=== PATIENT | male | born 1950 ===

== ENCOUNTER 2020-08-03 14:34 | Inpatient (IN) ==
[2020-08-03 16:12] LABS: Urine Appearance Clear; Urine Bilirubin Negative (Negative); Urine Blood Negative (Negative); Urine Color Yellow; Urine Glucose 3+(>=500 mg/dL) (Negative); Urine Ketones Negative (Negative); Urine Nitrite Negative (Negative); Urine Protein 2+(100 mg/dL) (Negative); Urine Specific Gravity 1.016 (1.010-1.030); Urine Urobilinogen Negative (Negative)
[2020-08-03 16:21] LABS: Urine Bacteria Absent (Absent); Urine Red Blood Cell Trace(0-2/hpf) (Absent); Urine Squamous Epithelial Cell Present (Absent); Urine White Blood Cell Trace(0-5/hpf) (Absent)
[2020-08-03 16:46] LABS: ABS Lymphocytes 1.6 10^3/ul (1.0-4.8); ABS Monocytes 0.7 10^3/ul (0-0.8); ABS Neutrophils 4.1 10^3/ul (1.5-7.7); Eosinophil % 0.5 %; Hematocrit 34 % (42-52); Hemoglobin 11.8 g/dL (14.0-18.0); Lymphocyte % 25.1 %; Mean Corpuscular HGB Conc 34 g/dL (31-36); Mean Corpuscular Hemoglobin 33 pg (27-31); Mean Corpuscular Volume 96 fL (80-94); Mean Platelet Volume 11.6 fL (7.4-10.4); Platelet Count 110 10^3/uL (150-450); Red Blood Count 3.56 10^6 /uL (4.18-5.48); Red Cell Distribution Width 14 % (10-15); White Blood Count 6.6 10^3/uL (3.5-10.8)
[2020-08-03 16:50] LABS: INR 1.11 (0.82-1.09)
[2020-08-03 17:11] LABS: TSH Ultra Thyroid Stim Horm 1.04 mcIU/mL (0.34-5.60)
[2020-08-03 17:59] LABS: Albumin 3.9 g/dL (3.2-5.2); Albumin/Globulin Ratio 1.3 (1-3); BUN/Creatinine Ratio 14.1 (8-20); Calcium 9.4 mg/dL (8.6-10.3); EGFR African American 42.5 (>60); EGFR Non-African American 35.1 (>60); Potassium 3.8 mmol/L (3.5-5.0); Total Bilirubin 0.5 mg/dL (0.2-1.0); Total Protein 6.9 g/dL (6.4-8.9)
[2020-08-03 18:15] LABS: Troponin I 0.02 ng/mL (<0.03)
[2020-08-03] MEDS ORDERED: Dextrose 50% Syringe 50 ml 25 GM/50 ML SYRINGE IV PUSH PRN (21:58)
[2020-08-03 22:34] LABS: HDL Cholesterol 25.6 mg/dL
[2020-08-03 22:50] LABS: Urine Benzodiazepine Screen None Detected (None Detect); Urine Cannabinoids Screen None Detected (None Detect); Urine Opiates Screen None Detected (None Detect)
[2020-08-04 06:10] LABS: BUN/Creatinine Ratio 14.3 (8-20); Calcium 9.2 mg/dL (8.6-10.3); EGFR African American 54.5 (>60); Potassium 3.2 mmol/L (3.5-5.0)
[2020-08-04] MEDS ORDERED: GLECAPREVIR/PIBRENTASVIR 1 EACH TABLET PO SCH (09:00)
[2020-08-04] MEDS: Aspirin EC 81 mg TAB.EC (enteric coated) PO SCH (09:27)
[2020-08-04] MEDS: Insulin GLARGINE 100 un/ml 10 ml VIAL SUBCUT SCH (09:27)
[2020-08-04] MEDS ORDERED: Potassium Chloride LIQUID 20 MEQ/15 ML LIQUID PO ONE (17:54)
[2020-08-04] MEDS: Analgesic BALM 114 GM TOPICAL SCH (23:32)
[2020-08-05 06:42] LABS: Hematocrit 34 % (42-52); Hemoglobin 11.7 g/dL (14.0-18.0); Mean Corpuscular HGB Conc 34 g/dL (31-36); Mean Corpuscular Hemoglobin 33 pg (27-31); Mean Corpuscular Volume 95 fL (80-94); Mean Platelet Volume 11.4 fL (7.4-10.4); Platelet Count 108 10^3/uL (150-450); Red Cell Distribution Width 14 % (10-15); White Blood Count 7.9 10^3/uL (3.5-10.8)
[2020-08-05 07:01] LABS: Anion Gap 5 mmol/L (2-11); BUN/Creatinine Ratio 16.9 (8-20); Blood Urea Nitrogen 23 mg/dL (6-24); CO2 Carbon Dioxide 28 mmol/L (22-32); Calcium 8.9 mg/dL (8.6-10.3); Chloride 107 mmol/L (101-111); EGFR African American 62.9 (>60); Glucose 98 mg/dL (70-100); Potassium 3.2 mmol/L (3.5-5.0); Sodium 140 mmol/L (135-145)
[2020-08-05 07:04] LABS: % Iron Saturation 22 % (15-55); Iron 60 ug/dL (50-212); Total Iron Binding Capacity 267 mcg/dL (250-450); Transferrin 191 mg/dL (203-362); Unsaturated Iron Binding < 252 ug/dL
[2020-08-05 07:24] LABS: Ferritin 70.6 ng/mL (24-336)
[2020-08-05 07:28] LABS: Vitamin B12 436 pg/mL (180-914)
[2020-08-05 09:30] LABS: Urine Creatinine Concentration 89.56 mg/dL
[2020-08-05] MEDS: Insulin GLARGINE 100 un/ml 10 ml VIAL SUBCUT SCH (09:53)
[2020-08-05] MEDS: Aspirin EC 81 mg TAB.EC (enteric coated) PO SCH (09:55)
[2020-08-05] MEDS: Analgesic BALM 114 GM TOPICAL SCH ×3 (09:56→20:07)
[2020-08-05] MEDS ORDERED: Iodixanol (CONTRAST) 320 MG/ML 100 ML SDV IV ONE (10:54)
[2020-08-05] MEDS ORDERED: Potassium Chlor 20 meq TAB.ER PO ONE ×2 (16:32→17:05)
[2020-08-06 06:54] LABS: ABS Eosinophils 0.1 10^3/ul (0-0.6); ABS Lymphocytes 2.7 10^3/ul (1.0-4.8); ABS Monocytes 0.8 10^3/ul (0-0.8); ABS Neutrophils 4.1 10^3/ul (1.5-7.7); Eosinophil % 1.1 %; Hematocrit 37 % (42-52); Hemoglobin 12.7 g/dL (14.0-18.0); Lymphocyte % 34.9 %; Mean Corpuscular HGB Conc 34 g/dL (31-36); Mean Corpuscular Hemoglobin 32 pg (27-31); Mean Corpuscular Volume 95 fL (80-94); Mean Platelet Volume 10.9 fL (7.4-10.4); Platelet Count 117 10^3/uL (150-450); Red Blood Count 3.92 10^6 /uL (4.18-5.48); Red Cell Distribution Width 14 % (10-15); White Blood Count 7.8 10^3/uL (3.5-10.8)
[2020-08-06 07:10] LABS: BUN/Creatinine Ratio 15.3 (8-20); Calcium 9.4 mg/dL (8.6-10.3); EGFR African American 65.6 (>60); EGFR Non-African American 54.3 (>60); Potassium 3.7 mmol/L (3.5-5.0)
[2020-08-06] MEDS: Insulin GLARGINE 100 un/ml 10 ml VIAL SUBCUT SCH (09:57)
[2020-08-06] MEDS: Analgesic BALM 114 GM TOPICAL SCH ×2 (09:59→14:14)
[2020-08-06] MEDS: Aspirin EC 81 mg TAB.EC (enteric coated) PO SCH (10:00)
[2020-08-06 16:56] VITALS: BP 173/79
== END 2020-08-06 20:30 | DRG 45 ==
LOC: ED 14:34 → MEDTELE 14:34
PROVIDERS: ADMIT Internal Medicine; ATTEND Internal Medicine

== ENCOUNTER 2021-01-03 12:46 | Inpatient (IN) ==
[2021-01-03] MEDS ORDERED: NS 0.9% 1000 ml BAG 1,000 ML IV ONE ×2 (14:18→17:29)
[2021-01-03 14:42] LABS: ABS Lymphocytes 1.4 10^3/ul (1.0-4.8); ABS Monocytes 0.7 10^3/ul (0-0.8); ABS Neutrophils 4.2 10^3/ul (1.5-7.7); Eosinophil % 0.7 %; Hematocrit 33 % (42-52); Hemoglobin 10.7 g/dL (14.0-18.0); Lymphocyte % 22.4 %; Mean Corpuscular HGB Conc 33 g/dL (31-36); Mean Corpuscular Hemoglobin 32 pg (27-31); Mean Corpuscular Volume 97 fL (80-94); Nucleated Red Blood Cells % 0.2; Red Blood Count 3.36 10^6 /uL (4.18-5.48); Red Cell Distribution Width 15 % (10-15); White Blood Count 6.5 10^3/uL (3.5-10.8)
[2021-01-03 14:55] LABS: ALT 3 U/L (7-52); Albumin 3.6 g/dL (3.2-5.2); Albumin/Globulin Ratio 1.2 (1-3); Alkaline Phosphatase 105 U/L (35-149); Blood Urea Nitrogen 14 mg/dL (6-24); CO2 Carbon Dioxide 29 mmol/L (22-32); Calcium 9.1 mg/dL (8.6-10.3); Chloride 107 mmol/L (101-111); EGFR African American 50.3 (>60); EGFR Non-African American 41.6 (>60); Globulin 3.1 g/dL (2-4); Glucose 75 mg/dL (70-100); Sodium 140 mmol/L (135-145); Total Protein 6.7 g/dL (6.4-8.9)
[2021-01-03 15:02] LABS: Anion Gap 4 mmol/L (2-11); Troponin I 0.03 ng/mL (<0.03)
[2021-01-03 15:28] LABS: Mean Platelet Volume 11.1 fL (7.4-10.4); Platelet Count 91 10^3/uL (150-450)
[2021-01-03] MEDS ORDERED: Dextrose 50% Syringe 50 ml 25 GM/50 ML SYRINGE IV PUSH PRN (20:22)
[2021-01-03 21:45] LABS: Troponin I 0.03 ng/mL (<0.03)
[2021-01-03 22:01] LABS: Ferritin 82.3 ng/mL (24-336)
[2021-01-03 22:05] LABS: Vitamin B12 408 pg/mL (180-914)
[2021-01-03 22:30] LABS: % Iron Saturation 25 % (15-55); Iron 68 ug/dL (50-212); Total Iron Binding Capacity 273 mcg/dL (250-450); Transferrin 195 mg/dL (203-362); Unsaturated Iron Binding < 258 ug/dL
[2021-01-03 22:34] LABS: Anion Gap 12 mmol/L (2-11); CO2 Carbon Dioxide 23 mmol/L (22-32); Chloride 105 mmol/L (101-111); Potassium 3.4 mmol/L (3.5-5.0); Sodium 140 mmol/L (135-145)
[2021-01-03 22:40] LABS: Blood Urea Nitrogen 14 mg/dL (6-24); EGFR African American 59.8 (>60); EGFR Non-African American 49.4 (>60); Glucose 100 mg/dL (70-100)
[2021-01-03 22:48] LABS: Hematocrit 40 % (42-52); Hemoglobin 13.8 g/dL (14.0-18.0)
[2021-01-04] MEDS ORDERED: hydrALAZINE 20 mg/ml 1 ML Vial IV IV SLOW PU ONE ×4 (00:14→23:48)
[2021-01-04] MEDS ORDERED: Potassium Chlor 20 meq TAB.ER PO ONE (01:00)
[2021-01-05 06:31] LABS: Hematocrit 40 % (42-52); Hemoglobin 13.7 g/dL (14.0-18.0); Mean Corpuscular HGB Conc 34 g/dL (31-36); Mean Corpuscular Hemoglobin 32 pg (27-31); Mean Corpuscular Volume 94 fL (80-94); Mean Platelet Volume 10.7 fL (7.4-10.4); Platelet Count 104 10^3/uL (150-450); Red Blood Count 4.25 10^6 /uL (4.18-5.48); Red Cell Distribution Width 15 % (10-15); White Blood Count 6.2 10^3/uL (3.5-10.8)
[2021-01-05 06:41] LABS: Calcium 9.2 mg/dL (8.6-10.3); EGFR African American 54.5 (>60); Potassium 3.3 mmol/L (3.5-5.0)
[2021-01-05] MEDS ORDERED: Potassium Chlor 20 meq TAB.ER PO ONE (06:56)
[2021-01-05] MEDS: Aspirin EC 81 mg TAB.EC (enteric coated) PO SCH (12:47)
[2021-01-06] MEDS ORDERED: hydrALAZINE 20 mg/ml 1 ML Vial IV IV SLOW PU ONE ×2 (00:09→01:51)
[2021-01-06 05:36] LABS: Hematocrit 41 % (42-52); Hemoglobin 13.8 g/dL (14.0-18.0); Mean Corpuscular HGB Conc 34 g/dL (31-36); Mean Corpuscular Hemoglobin 32 pg (27-31); Mean Corpuscular Volume 94 fL (80-94); Mean Platelet Volume 10.9 fL (7.4-10.4); Platelet Count 103 10^3/uL (150-450); Red Blood Count 4.36 10^6 /uL (4.18-5.48); Red Cell Distribution Width 16 % (10-15); White Blood Count 6.4 10^3/uL (3.5-10.8)
[2021-01-06 06:47] LABS: Blood Urea Nitrogen 20 mg/dL (6-24); CO2 Carbon Dioxide 24 mmol/L (22-32); Calcium 9.2 mg/dL (8.6-10.3); Chloride 104 mmol/L (101-111); EGFR African American 62.3 (>60); EGFR Non-African American 51.5 (>60); Glucose 161 mg/dL (70-100); Sodium 138 mmol/L (135-145)
[2021-01-06 07:00] LABS: Anion Gap 10 mmol/L (2-11)
[2021-01-06] MEDS ORDERED: Aspirin EC 81 mg TAB.EC (enteric coated) PO SCH (09:00)
[2021-01-06] MEDS: Aspirin EC 81 mg TAB.EC (enteric coated) PO SCH (09:14)
[2021-01-06] MEDS ORDERED: Enoxaparin 40 MG/0.4 ML SYR SUBCUT SCH (17:00)
[2021-01-07] MEDS: Aspirin EC 81 mg TAB.EC (enteric coated) PO SCH (08:23)
[2021-01-07 15:15] VITALS: BP 172/78
== END 2021-01-07 15:45 | disposition home or self-care (01) | DRG 48 ==
LOC: ED 12:46 → MEDTELE 12:46
PROVIDERS: ADMIT Internal Medicine; ATTEND Internal Medicine